=== PATIENT | female | born 1955 | race Caucasian/White ===

== ENCOUNTER 2016-12-20 16:15 | Emergency (ER) | payer MEDICARE | END 2016-12-20 17:06 | disposition home or self-care (01) | LOC: BURERS 16:15 | DX: I89.0 Lymphedema, not elsewhere classified (principal); E78.5 Hyperlipidemia, unspecified; J45.909 Unspecified asthma, uncomplicated; E03.9 Hypothyroidism, unspecified; I10 Essential (primary) hypertension; E11.9 Type 2 diabetes mellitus without complications; F32.9 Major depressive disorder, single episode, unspecified; M81.0 Age-related osteoporosis without current pathological fracture; Z87.891 Personal history of nicotine dependence; Z79.899 Other long term (current) drug therapy; Z79.84 Long term (current) use of oral hypoglycemic drugs | CPT/HCPCS: 99283 ==

== ENCOUNTER 2017-03-13 20:47 | Emergency (ER) | payer MEDICARE ==
[2017-03-13] MEDS ORDERED: HYDROcodone/Acetaminophen 5/325 mg Tablet ONE (21:40)
--- NOTE | 2017-03-13 22:27 | RAD ---
LEFT LEG TWO VIEWS 03/13/17 No fracture was seen. The tibia and fibula appear intact. There appears to be an os fibulare or old injury to the distal fibula. IMPRESSION: No acute bony findings. POS: HOME
== END 2017-03-13 21:45 | disposition home or self-care (01) ==
LOC: BURERS 20:47
DX: S80.12XA Contusion of left lower leg, initial encounter (principal); K21.9 Gastro-esophageal reflux disease without esophagitis; E78.5 Hyperlipidemia, unspecified; M81.0 Age-related osteoporosis without current pathological fracture; J45.909 Unspecified asthma, uncomplicated; E03.9 Hypothyroidism, unspecified; I10 Essential (primary) hypertension; E11.9 Type 2 diabetes mellitus without complications; F32.9 Major depressive disorder, single episode, unspecified; Z87.891 Personal history of nicotine dependence; Z79.899 Other long term (current) drug therapy; Z79.84 Long term (current) use of oral hypoglycemic drugs; Z79.2 Long term (current) use of antibiotics; W18.30XA Fall on same level, unspecified, initial encounter

== ENCOUNTER 2017-04-16 14:17 | Emergency (ER) | payer MEDICARE ==
[2017-04-16 14:57] LABS: #Basophils 0.1 thou/uL (0.0-0.2); #Eosinphils 0.1 thou/uL (0.0-0.7); #Monocytes 0.5 thou/uL (0.11-0.59); #Neutrophils 13.9 thou/uL (1.40-6.50); %Basophils 0.8 % (0.0-1.0); %Eosinophils 0.6 % (0.0-10.0); %Lymphocytes 6.2 % (21.0-51.0); %Monocytes 3.2 % (0.0-10.0); %Neutrophils 89.2 % (42.0-75.0); Hemoglobin 11.6 g/dL (12.0-16.0); Mean Corpuscular HGB CONC 32.1 g/dL (32.0-36.0); Mean Corpuscular Hemoglobin 32.2 pg (27.0-31.0); Mean Platelet Volume 7.7 fL (7.4-10.4); Platelet Count 409 thou/uL (130-400); RBC Distribution Width 17.7 % (11.5-14.5); Red Blood Cell (RBC) Count 3.61 mill/uL (4.20-5.40); White Blood Cell (WBC) Count 15.5 thou/uL (4.8-10.8)
[2017-04-16 15:09] LABS: ALT (SGPT) 32 U/L (8-55); AST (SGOT) 11 U/L (5-34); Alkaline Phosphatase 73 U/L (40-150); Anion Gap 24 mmol/L (10-20); BUN (Urea Nitrogen) 47 mg/dL (9.8-20.1); Bilirubin, Total 0.2 mg/dL (0.2-1.2); Calc. Creatinine Clearance 0 mL/min (70-130); Calcium 10.1 mg/dL (7.8-10.44); Carbon Dioxide 21 mmol/L (22-29); Chloride 103 mmol/L (98-107); Estimated GFR-MDRD 12; Globulin 2.9 g/dL (2.4-3.5); Glucose 209 mg/dL (70-105); Potassium 5.1 mmol/L (3.5-5.1); Protein, Total 6.9 g/dL (6.0-8.3); Sodium 143 mmol/L (136-145)
[2017-04-16 15:14] LABS: Troponin I 0.018 ng/mL (< 0.028)
[2017-04-16 16:28] LABS: Lactic Acid 3.1 mmol/L (0.5-2.2)
[2017-04-16 16:33] LABS: Anion Gap 16 mmol/L (10-20); BUN (Urea Nitrogen) 46 mg/dL (9.8-20.1); Calc. Creatinine Clearance 0 mL/min (70-130); Calcium 8.6 mg/dL (7.8-10.44); Carbon Dioxide 23 mmol/L (22-29); Chloride 107 mmol/L (98-107); Estimated GFR-MDRD 13; Glucose 155 mg/dL (70-105); Potassium 4.5 mmol/L (3.5-5.1); Sodium 141 mmol/L (136-145)
--- NOTE | 2017-04-16 20:37 | RAD ---
CHEST TWO VIEWS: 04/16/17 Comparison is made with the 05/27/15 study. This patient's chest does not image extremely well. Significant disease could easily be hidden in he r chest and not be seen without a CT. The heart size remains normal. There is superior retraction of the left hilum that appears to be due to scarring in the left upper lobe from prior disease. No acute infiltrate or effusion was seen. Th e trachea is midline. IMPRESSION: Chronic changes but no definite acute findings. Low sensitivity study. Significant disease could eas arsenio hide on this chest x-ray. POS: HOME
== END 2017-04-16 17:03 | disposition short-term general hospital (02) ==
LOC: BURERS 14:17
DX: N17.9 Acute kidney failure, unspecified (principal); I95.9 Hypotension, unspecified; E87.2 Acidosis; K21.9 Gastro-esophageal reflux disease without esophagitis; E78.5 Hyperlipidemia, unspecified; J45.909 Unspecified asthma, uncomplicated; E03.9 Hypothyroidism, unspecified; F32.9 Major depressive disorder, single episode, unspecified; D86.9 Sarcoidosis, unspecified; E11.9 Type 2 diabetes mellitus without complications; Z87.891 Personal history of nicotine dependence; Z79.84 Long term (current) use of oral hypoglycemic drugs; Z79.52 Long term (current) use of systemic steroids; Z79.899 Other long term (current) drug therapy
CPT/HCPCS: 36416; 71020; 80053; 82553; 83605; 83880; 84484; 85025; 93005; 96360; 96361

== ENCOUNTER 2018-03-29 10:10 | Emergency (ER) | payer MEDICARE ==
[2018-03-29 10:55] LABS: #Basophils 0.1 thou/uL (0.0-0.2); #Eosinphils 0.5 thou/uL (0.0-0.7); #Lymphocytes 1.2 thou/uL (1.20-3.40); #Monocytes 0.6 thou/uL (0.11-0.59); #Neutrophils 6.3 thou/uL (1.40-6.50); %Basophils 1.2 % (0.0-1.0); %Eosinophils 5.3 % (0.0-10.0); %Lymphocytes 13.5 % (21.0-51.0); %Monocytes 6.9 % (0.0-10.0); Bilirubin Negative (Negative); Blood, Urine Negative (Negative); Clarity Clear (Clear); Glucose, Urine (Dipstick) Negative (Negative); Hemoglobin 12.5 g/dL (12.0-16.0); Leukocyte Negative (Negative); Mean Corpuscular HGB CONC 32.4 g/dL (32.0-36.0); Mean Corpuscular Hemoglobin 29.2 pg (27.0-31.0); Mean Corpuscular Volume 90.1 fL (78.0-98.0); Mean Platelet Volume 9.4 fL (7.4-10.4); Nitrite Negative (Negative); Platelet Count 353 thou/uL (130-400); Protein, Urine (Dipstick) Negative (Neg-Trace); RBC Distribution Width 14.1 % (11.5-14.5); Red Blood Cell (RBC) Count 4.28 mill/uL (4.20-5.40); Urobilinogen 0.2 mg/dL (0.2-1.0); White Blood Cell (WBC) Count 8.6 thou/uL (4.8-10.8); pH, Urine 5.5 (5.0-9.0)
[2018-03-29 11:01] LABS: PTT 32.2 SEC (22.9-36.1); Prothrombin Time 13.3 SEC (12.0-14.7)
[2018-03-29 11:08] LABS: ALT (SGPT) 16 U/L (8-55); AST (SGOT) 12 U/L (5-34); Albumin 4.3 g/dL (3.4-4.8); Alkaline Phosphatase 88 U/L (40-150); Anion Gap 16 mmol/L (10-20); BUN (Urea Nitrogen) 32 mg/dL (9.8-20.1); Bilirubin, Total 0.4 mg/dL (0.2-1.2); Calc. Creatinine Clearance 0 mL/min (70-130); Calcium 9.9 mg/dL (7.8-10.44); Carbon Dioxide 22 mmol/L (23-31); Chloride 106 mmol/L (98-107); Estimated GFR-MDRD 57; Glucose 113 mg/dL (80-115); Potassium 4.1 mmol/L (3.5-5.1); Protein, Total 7.3 g/dL (6.0-8.3); Sodium 140 mmol/L (136-145)
[2018-03-29 11:12] LABS: CKMB 0.8 ng/mL (0-6.6); Troponin I Less than 0.010 ng/mL (< 0.028)
[2018-03-29] MEDS ORDERED: Ondansetron ODT 4 MG TAB ONE (11:17)
--- NOTE | 2018-03-29 18:36 | CT ---
CT BRAIN WITHOUT CONTRAST: 03/29/2018 FINDINGS: The ventricles are normal in size with no shift. No intracranial bleeding or extraaxial hematoma is seen. There is no sign of stroke, mass, or edema. The visible paranasal sinuses and mastoid air david ls are clear. The calvarium is unremarkable. IMPRESSION: No acute intracranial findings. POS: HOME
--- NOTE | 2018-03-29 18:38 | RAD ---
AP PORTABLE CHEST: 03/29/2018 1033 HOURS COMPARISON: 04/16/2017 FINDINGS: As before, there is superior retraction of the left hilum due to left upper lobe scarring. There is left apical pleural thickening. No new infiltrates are seen. There are no effusions. No congestive changes are present. There is a small, nodular density in the right upper lobe that is subcentimete r in size and most likely a granuloma. It was present before and really has not changed. I would no te that this patient's chest does not image exceptionally well. One would need a CT to find some dis ease within it. IMPRESSION: Chronic changes in the left hilum and left upper lobe. No acute findings. POS: HOME
== END 2018-03-29 11:56 | disposition home or self-care (01) ==
LOC: BURERS 10:10
DX: R55 Syncope and collapse (principal); R51 Headache; F32.9 Major depressive disorder, single episode, unspecified; M81.0 Age-related osteoporosis without current pathological fracture; E03.9 Hypothyroidism, unspecified; J45.909 Unspecified asthma, uncomplicated; E11.9 Type 2 diabetes mellitus without complications; E78.5 Hyperlipidemia, unspecified; Z87.891 Personal history of nicotine dependence; Z79.899 Other long term (current) drug therapy; Z79.84 Long term (current) use of oral hypoglycemic drugs
CPT/HCPCS: 36415; 70450; 71045; 80053; 81003; 82553; 83605; 84443; 84484; 85025; 85610; 85652; 85730; 93005; 94760; Q0162

== ENCOUNTER 2019-04-26 14:59 | Emergency (ER) | payer MEDICARE ==
[2019-04-26] MEDS ORDERED: Adacel (T-DAP) 0.5 ML SYRINGE ONE (15:26)
[2019-04-26] MEDS ORDERED: Ibuprofen 800 MG TAB ONE (15:47)
--- NOTE | 2019-04-26 18:14 | CT ---
CT OF THE BRAIN WITHOUT CONTRAST: 04/26/19 The ventricles are normal in size with no shift. No intracranial bleeding or extra-axial hematoma was seen. There is no sign of stroke, mass or edema. The skull appears intact with no fracture. The sphe noid sinus and mastoid air cells are clear as are the visible paranasal sinuses. IMPRESSION: No acute intracranial findings. Preliminary report called to Sarah in ER at 1538 on 04/26/19. POS: HOME
== END 2019-04-26 15:50 | disposition home or self-care (01) ==
LOC: BURERS 14:59
DX: S01.81XA Laceration without foreign body of other part of head, initial encounter (principal); K21.9 Gastro-esophageal reflux disease without esophagitis; E78.5 Hyperlipidemia, unspecified; E78.00 Pure hypercholesterolemia, unspecified; E03.9 Hypothyroidism, unspecified; I10 Essential (primary) hypertension; E11.9 Type 2 diabetes mellitus without complications; F32.9 Major depressive disorder, single episode, unspecified; Z87.891 Personal history of nicotine dependence; Z79.899 Other long term (current) drug therapy; Z79.51 Long term (current) use of inhaled steroids; Z79.84 Long term (current) use of oral hypoglycemic drugs; W20.8XXA Other cause of strike by thrown, projected or falling object, initial encounter
CPT/HCPCS: 70450; 90471; 90715